=== PATIENT | male | born 1985 | race Caucasian/White ===

== ENCOUNTER 2023-04-10 11:14 | Emergency (ER) | payer OTHER, SELFPAY ==
[2023-04-10 11:38] VITALS: BP 165/103; PULSE 96; RESP 17; TEMP 36.4; O2SAT 100
--- NOTE | 2023-04-10 12:34 | ED.GENADULT ---
HPI - General Adult General Chief complaint: Dental/Oral Stated complaint: dental pain Time Seen by Provider: 04/10/23 11:44 Source: patient Mode of arrival: ambulatory Limitations: no limitations History of Present Illness HPI narrative: This is a 30-year-old male who presents to the ED with chief complaint of right upper dental pain onset last night. He reports a little bit of swelling to the right cheek. He reports that he has had history of abscess in the past that did very well with antibiotics. 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 Denies fevers, chills, difficulty swallowing or breathing, nausea or vomiting. Related Data Allergies Allergy/AdvReac Type Severity Reaction Status Date / Time morphine Allergy Intermediate Difficulty Verified 04/10/23 11:48 Breathing Exam Narrative: GENERAL: Well-appearing, well-nourished, and in no acute distress. HEAD: Normocephalic, atraumatic. EYES: PERRLA and EOMI. ENT: Mild swelling of the right maxillary area. Poor dentition throughout the mouth. No identifiable abscess on dental exam. Nares clear, no rhinorrhea or epistaxis. Mucous membranes moist. Oropharynx without tonsillar hypertrophy exudate or other lesions. Uvula midline. Floor of the mouth is intact. Tolerating secretions. NECK: Supple. No adenopathy or masses. CHEST: No respiratory distress. Clear to auscultation. No wheezes rales or rhonchi HEART: Regular rate and rhythm. No murmur heard. Normal peripheral pulses. ABDOMEN: Soft, nontender, nondistended, normal active bowel sounds. MSK: Normal range of motion. No edema. SKIN: Warm, dry, no rash. NEURO: Alert and oriented x3. No focal deficits. PSYCH: Normal mood and affect. Course Vital Signs Vital signs: Vital Signs Temperature 97.5 F L 04/10/23 11:38 Pulse Rate 96 04/10/23 11:38 Respiratory Rate 17 04/10/23 11:38 Blood Pressure 165/103 H 04/10/23 11:38 Pulse Oximetry 100 04/10/23 11:38 Oxygen Delivery Room Air 04/10/23 11:38 Temperature 97.5 F L 04/10/23 11:38 Pulse Rate 96 04/10/23 11:38 Respiratory Rate 17 04/10/23 11:38 Blood Pressure 165/103 H 04/10/23 11:38 Pulse Oximetry 100 04/10/23 11:38 Oxygen Delivery Room Air 04/10/23 11:38 Medical Decision Making MDM Narrative Medical decision making narrative: This is a 38-year-old male who presents to the ED with chief complaint of right upper dental pain onset x2 days. Vitals are normal. Afebrile. Exam shows mildly swollen right maxillary area. He has poor dentition throughout the mouth. No identifiable abscess on exam. He is overall well-appearing. Floor the mouth is intact. Prescription for Augmentin given. He will be discharged in stable condition. Supportive measures for home discussed and return precautions given. He is understanding that he is to follow-up with a dentist. Vital Signs Vital Signs: Vital Signs Temperature 97.5 F L 04/10/23 11:38 Pulse Rate 96 04/10/23 11:38 Respiratory Rate 17 04/10/23 11:38 Blood Pressure 165/103 H 04/10/23 11:38 Pulse Oximetry 100 04/10/23 11:38 Oxygen Delivery Room Air 04/10/23 11:38 Temperature 97.5 F L 04/10/23 11:38 Pulse Rate 96 04/10/23 11:38 Respiratory Rate 17 04/10/23 11:38 Blood Pressure 165/103 H 04/10/23 11:38 Pulse Oximetry 100 04/10/23 11:38 Oxygen Delivery Room Air 04/10/23 11:38 Discharge Plan Discharge Clinical Impression: Toothache, Dental caries Patient Disposition: Home, Self-Care Condition: Stable Instructions: Antibiotic Form Additional Instructions: Your exam in the ER is reassuring today. Please take Tylenol and ibuprofen every 4-6 hours as needed for pain. Please take Augmentin twice a day through its full course. You have been given a dental referral sheet. Please follow-up very closely with a dentist for your teeth. If you have any new or worsening symptoms as discussed please retu
[2023-04-10] MEDS: KETOROLAC 30 MG/ML VIAL (*BKC) IM (12:55)
== END 2023-04-10 12:57 | disposition home or self-care (01) ==
LOC: ANHED 12:42
PROVIDERS: Emergency Provider Physician Assistant
DX: K02.9 Dental caries, unspecified (principal)
CPT/HCPCS: 96372; 99283; J1885

== ENCOUNTER 2023-06-26 15:49 | Outpatient (CLI) | payer OTHER, SELFPAY ==
--- NOTE | 2023-06-26 15:58 | ECHO_ITS ---
Patient Info Name: Omar Mccormack Age: 38 years : 1985 Gender: Male Ht: 72 in Wt: 240 lbs BSA: 2.38 m2 HR: 75 bpm BP: 145 / 85 mmHg Heart Rhythm: Sinus Rhythm Technical Quality: Poor Exam Date: 06/26/2023 4:10 PM Exam Location: [facility] Patient Status: Outpatient Admit Date: 06/26/2023 Staff Ordering Physician: Nuno Worrell DO Postal Sorting Officer: Crys Rodriguez RDCS Attending Provider: Nuno Worrell DO Referring Physician: Gm MCDONOUGH; Exam Type: CA echo doppler color flow Study Info Indications - presence of prosthatic heart valve Complete two-dimensional, color flow and Doppler transthoracic echocardiogram is performed. Reason for Poor Study: poor echocardiographic windows Summary 1. Complete two-dimensional, color flow and Doppler transthoracic echocardiogram is performed. 2. Technically suboptimal study due to poor sonographic images. 3. Left ventricular chamber dimension is normal. 4. 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 5. Left ventricular systolic function is normal, estimated at 60-65%. 6. There is mild concentric increased left ventricular wall thickness. 7. The left ventricular diastolic function is normal. 8. Bioprosthetic valve by history. 9. The bioprosthetic aortic valve is not well visualized. 10. No pulmonary hypertension, estimated pulmonary arterial systolic pressure is 8 mmHg. Left Ventricle Technically suboptimal study due to poor sonographic images. 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 Tissue doppler E/e' is not performed. Left ventricular chamber dimension is normal. Left ventricular systolic function is normal, estimated at 60-65%. There is mild concentric increased left ventricular wall thickness. The left ventricular diastolic function is normal. Right Ventricle Right ventricular chamber dimension is not well visualized. Left Atria Left atrial chamber dimension is normal. Right Atria Right atrial chamber dimension is not well visualized. Aortic Valve There is no bioprosthetic aortic valve stenosis by gradients. Bioprosthetic valve by history. The bioprosthetic aortic valve is not well visualized. There is no regurgitation of the bioprosthetic aortic valve. Pulmonic Valve The pulmonic valve is not well visualized. There is no pulmonic regurgitation. Mitral Valve The mitral valve has not well visualized. There is no mitral valve stenosis. There is no mitral valve regurgitation. Tricuspid Valve The tricuspid valve leaflets are not well visualized. There is no tricuspid valve regurgitation. No pulmonary hypertension, estimated pulmonary arterial systolic pressure is 8 mmHg. Pericardium/Pleural There is no pericardial effusion. Inferior Vena Cava Normal inferior vena cava with >50% collapse upon inspiration consistent with normal right atrial pressure, 5 mmHg. Aorta The aortic root size at the sinus of Valsalva is not well visualized. Left Ventricular Outflow Tract Name Value Normal LVOT Doppler LVOT Peak Gradient 19 mmHg LVOT Mean Gradient 15 mmHg LVOT VTI 50 cm LVOT VTI/AV VTI Ratio 0.8 Mitral Valve --------
== END 2023-06-26 15:50 | disposition home or self-care (01) ==
LOC: ANHCARD 15:50
PROVIDERS: Visit Provider Internal Medicine Cardiovascular Disease
DX: Z95.3 Presence of xenogenic heart valve (principal)
CPT/HCPCS: 93306

== ENCOUNTER 2023-08-08 11:07 | Outpatient (CLI) | payer OTHER, SELFPAY ==
[2023-08-08 11:53] LABS: Basophils Absolute Auto 0.1 K/mm3 (0.0-0.1); Basophils Percent Auto 0.6 % (0.2-1.2); Eosinophils Absolute Auto 0.2 K/mm3 (0-0.3); Eosinophils Percent Auto 1.8 % (0-4.4); Hematocrit 46.5 % (42.0-52.0); Hemoglobin 15.2 g/dL (14.0-18.0); Immature Granulocyte Absolute 0.04 K/mm3 (0.00-0.031); Immature Granulocyte Percent A 0.5 % (0-0.5); Lymphocytes Absolute Auto 1.63 K/mm3 (0.9-3.2); Lymphocytes Percent Auto 19.4 % (18.3-44.2); Mean Corpuscular HGB Conc 32.7 g/dl (32-36); Mean Corpuscular Hemoglobin 29.3 pg (26-34); Mean Corpuscular Volume 89.6 fl (80-100); Mean Platelet Volume 9.8 fl (7.4-10.4); Monocytes Absolute Auto 0.6 K/mm3 (0.1-0.6); Monocytes Percent Auto 7.1 % (2.6-8.5); Neutrophils Percent Auto 70.6 % (45.5-73.1); Platelet Count Result 267 k/mm3 (150-375); Red Blood Count 5.19 M/mm3 (4.6-6.20); Red Cell Distribution Width 12.6 % (11.5-14.5); White Blood Count 8.4 K/mm3 (4.5-10.0)
[2023-08-08 12:04] LABS: Alanine Aminotransferase 24 U/L (6-50); Albumin Level 4.5 g/dL (3.5-5.1); Alkaline Phosphatase 74 U/L (38-126); Anion Gap 9 mmol/L (8-16); Aspartate Amino Transferase 29 U/L (17-59); Bilirubin,Total 0.6 mg/dL (0.2-1.3); Blood Urea Nitrogen 14 mg/dL (9-20); Calcium 9.1 mg/dL (8.4-10.2); Carbon Dioxide 27 mmol/L (22-30); Chloride 103 mmol/L (98-107); Cholesterol 188 mg/dL (0-200); Estimated Glomerular Filt Rate > 60; Glucose 93 mg/dL (65-110); HDL Direct 37 mg/dL; Potassium 4.3 mmol/L (3.4-5.0); Sodium 139 mmol/L (137-145); Triglycerides 127 mg/dL (<150)
[2023-08-08 12:15] LABS: LDL Cholesterol Direct 116 mg/dL
== END 2023-08-08 11:08 | disposition home or self-care (01) ==
LOC: ANHLAB 11:09
PROVIDERS: Visit Provider Internal Medicine Cardiovascular Disease
DX: I25.10 Atherosclerotic heart disease of native coronary artery without angina pectoris (principal)
CPT/HCPCS: 36415; 80053; 80061; 84443; 85025

== ENCOUNTER 2023-12-05 10:17 | Outpatient (CLI) | payer OTHER, SELFPAY ==
[2023-12-05 10:56] LABS: Alanine Aminotransferase 23 U/L (6-50); Albumin Level 4.7 g/dL (3.5-5.1); Alkaline Phosphatase 96 U/L (38-126); Anion Gap 10 mmol/L (8-16); Aspartate Amino Transferase 36 U/L (17-59); Bilirubin,Total 0.6 mg/dL (0.2-1.3); Blood Urea Nitrogen 12 mg/dL (9-20); Calcium 9.7 mg/dL (8.4-10.2); Carbon Dioxide 23 mmol/L (22-30); Chloride 107 mmol/L (98-107); Cholesterol 170 mg/dL (0-200); Estimated Glomerular Filt Rate > 60; Glucose 100 mg/dL (65-110); HDL Direct 33 mg/dL; Potassium 4.1 mmol/L (3.4-5.0); Sodium 140 mmol/L (137-145); Triglycerides 162 mg/dL (<150)
[2023-12-05 11:06] LABS: LDL Cholesterol Direct 109 mg/dL
== END 2023-12-05 10:18 | disposition home or self-care (01) ==
LOC: ANHLAB 10:18
PROVIDERS: PCP Nurse Practitioner Family; Visit Provider Internal Medicine Cardiovascular Disease
DX: E78.5 Hyperlipidemia, unspecified (principal); I25.10 Atherosclerotic heart disease of native coronary artery without angina pectoris
CPT/HCPCS: 36415; 80053; 80061

== ENCOUNTER 2025-03-16 10:32 | Outpatient (CLI) | payer OTHER, SELFPAY ==
[2025-03-16 11:32] LABS: Alanine Aminotransferase 22 U/L (6-50); Albumin Level 4.2 g/dL (3.5-5.1); Alkaline Phosphatase 68 U/L (38-126); Anion Gap 9 mmol/L (4-12); Aspartate Amino Transferase 37 U/L (17-59); Bilirubin,Total 0.5 mg/dL (0.2-1.3); Blood Urea Nitrogen 13 mg/dL (9-20); Calcium 9.3 mg/dL (8.4-10.2); Carbon Dioxide 20 mmol/L (22-30); Chloride 108 mmol/L (98-107); Cholesterol 165 mg/dL (0-200); Estimated Glomerular Filt Rate > 60; Glucose 104 mg/dL (65-110); HDL Direct 27 mg/dL; Potassium 5.3 mmol/L (3.4-5.0); Sodium 137 mmol/L (137-145); Total Protein 7.8 g/dL (6.3-8.2); Triglycerides 126 mg/dL (<150)
[2025-03-16 11:43] LABS: LDL Cholesterol Direct 100 mg/dL
== END 2025-03-16 10:33 | disposition home or self-care (01) ==
LOC: ANHLAB 10:33
PROVIDERS: PCP Nurse Practitioner Family; Visit Provider Internal Medicine Cardiovascular Disease
DX: E78.5 Hyperlipidemia, unspecified (principal)
CPT/HCPCS: 36415; 80053; 80061